=== PATIENT | male | born 1950 | race African-American/Black ===

== ENCOUNTER 2017-05-04 14:14 | Emergency (ER) | payer MEDICARE, MEDICAID ==
[~2017-05-04] VITALS: Ht 165.1 cm; Wt 98.0 kg
[2017-05-04] MEDS ORDERED: ENAL20TA PO (14:47)
[2017-05-04] MEDS ORDERED: VERA240C2 PO (14:47)
[2017-05-04] MEDS ORDERED: TAMS0.4C31 PO (14:47)
[2017-05-04] MEDS ORDERED: BACITRACIN ZINC OINT UDPKT TOP ONE (15:00)
[2017-05-04] MEDS ORDERED: TETANUS, DIPHTHERIA, PERTUSSIS VAC/PF 0.5ML (>7YR OLD) IM ONE (16:00)
[2017-05-04 16:36] VITALS: BP 132/60
== END 2017-05-04 16:36 | disposition home or self-care (01) ==
LOC: ER 15:22
DX: S01.112A Laceration without foreign body of left eyelid and periocular area, initial encounter (principal); S09.90XA Unspecified injury of head, initial encounter; F79 Unspecified intellectual disabilities; I10 Essential (primary) hypertension; W01.0XXA Fall on same level from slipping, tripping and stumbling without subsequent striking against object, initial encounter; Y93.89 Activity, other specified; Y92.830 Public park as the place of occurrence of the external cause
CPT/HCPCS: 12011; 70450; 90471; 90715; 99284

== ENCOUNTER 2018-12-25 12:17 | Emergency (ER) | payer MEDICARE, MEDICAID ==
[~2018-12-25] VITALS: Ht 167.6 cm; Wt 100.0 kg
[~2018-12-25 12:17] MED LIST: ENAL20TA PO; TAMS0.4C31 PO; VERA240C2 PO
[2018-12-25 13:09] LABS: BASOPHILS % 0.7 % (0.0-2.0); CHLORIDE 110 mEq/L (98-107); EOSINOPHILS % 1.7 % (0.0-5.0); HEMATOCRIT. 34.7 % (42.0-52.0); HEMOGLOBIN. 11.3 g/dL (14.0-18.0); LYMPHOCYTES % 10.8 % (20.0-50.0); MEAN CORPUSCULAR HEMOGLOBIN 29.1 pg (28.0-32.0); MEAN CORPUSCULAR VOLUME 89.3 fL (80.0-94.0); MEAN PLATELET VOLUME 7.8 fl (7.4-10.4); MONOCYTES % 10.1 % (2.0-8.0); NEUTROPHILS % 76.7 % (40.0-76.0); PLATELET 320 x1000/uL (130-400); RED BLOOD CELL COUNT 3.88 mill/uL (4.7-6.1); RED CELL DISTRIBUTION WIDTH 14.5 % (11.6-14.6)
[2018-12-25 13:45] VITALS: BP 150/76
== END 2018-12-25 13:45 | disposition home or self-care (01) ==
LOC: ER 12:17
DX: R06.00 Dyspnea, unspecified (principal); I10 Essential (primary) hypertension; R53.1 Weakness; Z98.890 Other specified postprocedural states
CPT/HCPCS: 36415; 71045; 83880; 84484; 93005; 99284

== ENCOUNTER → 2021-07-31 | Outpatient (CLI) | payer MEDICARE, MEDICAID ==
[~2021-07-31] MED LIST changes: -ENAL20TA PO; +ENAL20TA18 PO; +REGADENOSON 0.4 MG/5 ML IV ONE
== END | disposition home or self-care (01) ==
LOC: RAD 07:30
PROVIDERS: ATTEND Internal Medicine Cardiovascular Disease
DX: R06.09 Other forms of dyspnea (principal); I25.10 Atherosclerotic heart disease of native coronary artery without angina pectoris; I10 Essential (primary) hypertension; F79 Unspecified intellectual disabilities; Z79.899 Other long term (current) drug therapy
CPT/HCPCS: 78452; 93017; A9500; C1893; J2785

== ENCOUNTER 2022-05-01 17:08 | Emergency (ER) | payer MEDICARE, MEDICAID ==
[~2022-05-01] VITALS: Ht 170.2 cm; Wt 81.6 kg
[~2022-05-01 17:08] MED LIST changes: -REGADENOSON 0.4 MG/5 ML IV ONE
[2022-05-01 17:10] VITALS: BP 148/65
[2022-05-01] MEDS ORDERED: ACETAMINOPHEN 325MG TABLET PO STA (17:29)
[2022-05-01] MEDS ORDERED: TETANUS, DIPHTHERIA, PERTUSSIS VAC/PF 0.5ML (>10YR OLD) IM ONE (17:30)
[2022-05-01 18:07] LABS: BASOPHILS % 0.5 % (0.0-2.0); EOSINOPHILS % 0.4 % (0.0-5.0); HEMATOCRIT. 33.7 % (42.0-52.0); HEMOGLOBIN. 11.4 g/dL (14.0-18.0); LYMPHOCYTES % 9.9 % (20.0-50.0); MEAN CORPUSCULAR HEMOGLOBIN 29.7 pg (28.0-32.0); MEAN CORPUSCULAR VOLUME 87.8 fL (80.0-94.0); MEAN PLATELET VOLUME 7.8 fl (7.4-10.4); NEUTROPHILS % 84.2 % (40.0-76.0); PLATELET 270 x1000/uL (130-400); RED BLOOD CELL COUNT 3.84 mill/uL (4.7-6.1); RED CELL DISTRIBUTION WIDTH 14.7 % (11.6-14.6)
[2022-05-01 18:14] LABS: CHLORIDE 109 mEq/L (98-107)
== END 2022-05-01 20:40 | disposition home or self-care (01) ==
LOC: ER 17:08
DX: S80.02XA Contusion of left knee, initial encounter (principal); R51.9 Headache, unspecified; I10 Essential (primary) hypertension; Z98.890 Other specified postprocedural states; W18.30XA Fall on same level, unspecified, initial encounter; Y93.89 Activity, other specified; Y92.89 Other specified places as the place of occurrence of the external cause; Y99.8 Other external cause status
CPT/HCPCS: 36415; 71045; 73552; 73564; 73590; 80053; 85025; 90471; 90715; 99285

== ENCOUNTER 2025-09-02 17:31 | Emergency (ER) | payer OTHER, MEDICAID ==
[~2025-09-02] VITALS: Ht 172.7 cm; Wt 113.5 kg
[~2025-09-02 17:31] MED LIST changes: +ASPI-1406 MT; +ATOR10TA MT; +ENAL-79 PO; -ENAL20TA18 PO
[2025-09-02 17:33] VITALS: O2SAT 97
[2025-09-02 18:18] LABS: BASOPHILS % 0.7 % (0.0-2.0); EOSINOPHILS % 1.2 % (0.0-5.0); HEMATOCRIT. 28.1 % (42.0-52.0); HEMOGLOBIN. 9.2 g/dL (14.0-18.0); LYMPHOCYTES % 21.1 % (20.0-50.0); MEAN PLATELET VOLUME 8.2 fl (7.4-10.4); MONOCYTES % 10.8 % (2.0-8.0); NEUTROPHILS % 66.2 % (40.0-76.0); PLATELET 236 x1000/uL (130-400); RED BLOOD CELL COUNT 3.07 mill/uL (4.7-6.1); RED CELL DISTRIBUTION WIDTH 15.0 % (11.6-14.6)
[2025-09-02 18:30] LABS: CREATININE 0.9 mg/dL (0.6-1.3); UREA NITROGEN BLOOD 12 mg/dL (9-23)
[2025-09-02 18:32] LABS: ASPARTATE AMINOTRANSFERASE 13 IU/L (<34); BILIRUBIN DIRECT 0.6 mg/dL (<=3.0); BILIRUBIN TOTAL 2.0 mg/dL (0.1-1.0); TROPONIN I HIGH SENSITIVITY 5 ng/L (3.0-53)
[2025-09-02 18:33] LABS: PROTEIN TOTAL 5.7 g/dL (6.0-8.3)
[2025-09-02 18:38] LABS: INR 1.0
[2025-09-02] MEDS: ASPIRIN 325MG EC TABLET PO ONE (20:32)
[2025-09-02 21:09] LABS: CLARITY URINE CLEAR (CLEAR); COLOR URINE YELLOW (YELLOW); GLUCOSE URINE NEGATIVE (NEGATIVE); KETONES URINE NEGATIVE (NEGATIVE); LEUKOCYTE ESTERASE URINE NEGATIVE (NEGATIVE); NITRITE URINE NEGATIVE (NEGATIVE); OCCULT BLOOD URINE TRACE (NEGATIVE); PH URINE 6.0 (4.5-8.0); PROTEIN URINE NEGATIVE (NEGATIVE); SPECIFIC GRAVITY URINE 1.021 (1.005-1.030); UROBILINOGEN URINE 1.0 E.U./dL (0.2-1.0)
[2025-09-02 21:21] LABS: *AMPHETAMINES SCREEN URINE NEGATIVE (NEGATIVE); *BENZODIAZEPINES SCREEN URINE NEGATIVE (NEGATIVE)
[2025-09-02 21:22] LABS: *BARBITURATES SCREEN URINE NEGATIVE (NEGATIVE); *COCAINE SCREEN URINE NEGATIVE (NEGATIVE); CANNABINOID URINE SCREEN NEGATIVE (NEGATIVE); ECSTASY MDMA SCREEN URINE NEGATIVE (NEGATIVE); METHADONE URINE SCREEN NEGATIVE (NEGATIVE); OPIATES URINE SCREEN NEGATIVE (NEGATIVE); PHENCYCLIDINE URINE SCREEN NEGATIVE (NEGATIVE)
[2025-09-02 21:27] LABS: WBC URINE NONE SEEN /hpf (0-2)
[2025-09-02 21:28] LABS: BACTERIA URINE TRACE; RBC URINE 0-2 /hpf (0-2); SQUAMOUS EPITHELIAL CELL URINE FEW /lpf (RARE/1+)
[2025-09-02 22:30] VITALS: BP 127/86; PULSE 65; RESP 19; TEMP 36.8; O2SAT 99
[2025-09-02] MEDS ORDERED: IOHEXOL-300 100 ML BOTTLE ONE (23:31)
== END 2025-09-02 22:30 | disposition short-term general hospital (02) ==
LOC: ER 17:31 → EDBEDREQ 21:58 → EDBEDREQTM 21:58 → ER 22:30 → CMPBEDREQ 09-04 12:11
DX: R41.0 Disorientation, unspecified (principal); G51.0 Bell's palsy; G93.41 Metabolic encephalopathy; I10 Essential (primary) hypertension; I63.81 Other cerebral infarction due to occlusion or stenosis of small artery; Z55.6 Problems related to health literacy; Z79.82 Long term (current) use of aspirin; Z79.899 Other long term (current) drug therapy; Z86.73 Personal history of transient ischemic attack (TIA), and cerebral infarction without residual deficits; Z91.141 Patient's other noncompliance with medication regimen due to financial hardship
CPT/HCPCS: 80076; 80305; 80048; 81003; 80320; 85025; 85610; 85730; 84484; 36415; 71045; 70496; 70498; 70450; 93005; 99291; Q9967; G0480